=== PATIENT | female | born 1950 | race Caucasian/White ===

== ENCOUNTER 2019-04-22 13:28 | Emergency (ER) | payer OTHER ==
[~2019-04-22] VITALS: Ht 154.9 cm; Wt 84.4 kg
[2019-04-22 13:56] VITALS: BP_SYST 143
--- NOTE | 2019-04-22 14:01 | NUR ---
Patient triaged and placed in waiting room. VSS and patient appears in no acute distress at this time. Accompanied by family, awaiting available bed, and MD notified of need for MSE.
--- NOTE | 2019-04-22 15:20 | NUR ---
BROUGHT BACK TO [facility] AND REPORT GIVEN TO ESTHER
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
--- NOTE | 2019-04-22 15:35 | NUR ---
ER Dr. Perales at bedside examining patient.
[2019-04-22 16:08] VITALS: BP_SYST 139
--- NOTE | 2019-04-22 16:08 | NUR ---
Patient given written and verbal discharge instructions and verbalizes understanding. ER MD MARQUEZ discussed with patient the results and treatment provided. Patient in stable condition. ID arm band removed. Rx of Motrin given. Patient educated on pain management and to follow up with PMD. Pain Scale 0. Opportunity for questions provided and answered. Medication side effect fact sheet provided.
== END 2019-04-22 16:08 | disposition home or self-care (01) ==
LOC: SED 13:28
DX: S20.229A Contusion of unspecified back wall of thorax, initial encounter (principal); I10 Essential (primary) hypertension; V49.40XA Driver injured in collision with unspecified motor vehicles in traffic accident, initial encounter; Y93.89 Activity, other specified; Y92.411 Interstate highway as the place of occurrence of the external cause; Y99.8 Other external cause status
CPT/HCPCS: 99282

== ENCOUNTER 2020-11-11 17:17 | Inpatient (IN) | payer OTHER, SELFPAY ==
[~2020-11-11] VITALS: Ht 157.5 cm; Wt 58.1 kg
[2020-11-11 17:18] VITALS: BP_SYST 188
[2020-11-11] MEDS ORDERED: ASPIRIN 325 MG TABLET PO ONE (17:45)
[2020-11-11] MEDS ORDERED: HYDR25TA4 PO (17:48)
[2020-11-11] MEDS ORDERED: LEVO112C4 (17:48)
[2020-11-11] MEDS ORDERED: ESCI10TA PO (17:48)
[2020-11-11] MEDS ORDERED: ATEN50TA PO (17:48)
[2020-11-11 17:50] LABS: BASOPHILS # (AUTO) 0.1 K/uL (0.0-0.2); BASOPHILS % (AUTO) 0.8 % (0.0-2.0); EOSINOPHILS % (AUTO) 0.6 % (0.0-4.0); HEMATOCRIT 38.4 % (36-48); HEMOGLOBIN 13.2 g/dL (12.0-16.0); LYMPHOCYTES # (AUTO) 2.2 K/uL (1.0-5.5); LYMPHOCYTES % (AUTO) 26.8 % (20.5-51.5); MEAN CORPUSCULAR HEMOGLOBIN 32 pg (27-31); MEAN CORPUSCULAR HGB CONC 34 % (32-36); MEAN CORPUSCULAR VOLUME 92 fL (79.0-98.0); MONOCYTES # (AUTO) 0.7 K/uL (0.0-1.0); MONOCYTES % (AUTO) 9.2 % (1.7-9.3); NEUTROPHILS # (AUTO) 5.1 K/uL (1.8-7.7); NEUTROPHILS % (AUTO) 62.6 % (40.0-70.0); PLATELET COUNT (AUTO) 209 K/uL (130-430); RED BLOOD CELL COUNT(AUTO) 4.17 MIL/uL (4.2-6.2); RED CELL DISTRIBUTION WIDTH 16.1 % (9.0-15.0); WHITE BLOOD COUNT (AUTO) 8.1 K/uL (4.8-10.8)
[2020-11-11 17:58] LABS: ANION GAP 11 (5-15); CREATININE 0.77 mg/dL (0.55-1.30); GLUCOSE 117 mg/dL (70-99); POTASSIUM 3.8 mmol/L (3.5-5.1); UREA NITROGEN, BLOOD 13 mg/dL (8-21)
[2020-11-11] MEDS ORDERED: ASPIRIN 325 MG TABLET ONE (18:01)
[2020-11-11 18:03] LABS: ALANINE AMINOTRANSFERASE 30 U/L (12-78); ALBUMIN 3.6 g/dL (3.4-4.8); ASPARTATE AMINOTRANSFERASE 25 U/L (10-37); TOTAL BILIRUBIN 0.8 mg/dL (0.0-1.0)
[2020-11-11 18:06] LABS: SODIUM SERUM 119 mmol/L (136-145)
[2020-11-11 18:07] LABS: CHLORIDE 84 mmol/L (98-107)
[2020-11-11 18:14] LABS: BILIRUBIN,URINE NEGATIVE (NEGATIVE); BLOOD, URINE TRACE (NEGATIVE); CLARITY/URINE CLEAR (CLEAR); COLOR,URINE YELLOW (YELLOW); GLUCOSE,URINE NEGATIVE (NEGATIVE); KETONES,URINE NEGATIVE (NEGATIVE); LEUKOCYTE ESTERASE ,URINE TRACE (NEGATIVE); NITRITE, URINE NEGATIVE (NEGATIVE); PH,URINE 7.5 (5.0-8.0); PROTEIN URINE NEGATIVE (NEGATIVE); UROBILINOGEN,URINE 0.2 (0.2-1.0)
[2020-11-11 18:15] LABS: BACTERIA,URINE FEW /HPF (None Seen); MUCUS,URINE None Seen /LPF (None Seen); RBC,URINE 0-3 /HPF (0-3)
[2020-11-11] MEDS ORDERED: SODIUM CHLORIDE 3% *HI-ALERT* 500 ML IV ONE ×2 (18:15→18:25)
[2020-11-11] MEDS ORDERED: ENALAPRILAT DIHYDRATE 1.25 MG/ML VIAL IVP ONE (18:30)
[2020-11-11] MEDS ORDERED: hydrALAZINE HCL 20 MG/ML VIAL IVP ONE (18:30)
[2020-11-11] MEDS ORDERED: NACL 0.9% 1,000 ML IV SCH (19:30)
[2020-11-11] MEDS ORDERED: ALBUTEROL SULFATE 0.083% 2.5 MG/3 ML VIAL.NEB INH PRN (19:30)
[2020-11-11 20:02] VITALS: BP_SYST 145
[2020-11-11] MEDS: ACETAMINOPHEN 325 MG TABLET PO PRN (20:08)
[2020-11-11] MEDS ORDERED: HYDROcodone/ACETAMIN 5-325 MG TAB (NORCO/ VICODIN) PO ONE (21:30)
[2020-11-12] VITALS: BP_SYST 148
[2020-11-12] MEDS: ACETAMINOPHEN 325 MG TABLET PO PRN ×2 (01:28→04:32)
[2020-11-12 06:05] VITALS: BP_SYST 145
[2020-11-12] MEDS: LEVOTHYROXINE SODIUM 0.112 MG TABLET PO SCH (06:30)
[2020-11-12 07:09] LABS: CHOLESTEROL 198 mg/dL (<200); HDL CHOLESTEROL 82 mg/dL (>55); LDL CHOLESTEROL 104 mg/dL (<100); TRIGLYCERIDES 58 mg/dL (30-150)
[2020-11-12 08:00] VITALS: BP_SYST 149
[2020-11-12] MEDS: ASPIRIN 325 MG TABLET PO SCH (10:14)
[2020-11-12 11:44] LABS: ANION GAP 14 (5-15); CALCIUM 8.8 mg/dL (8.4-11.0); CREATININE 0.73 mg/dL (0.55-1.30); GLUCOSE 105 mg/dL (70-99); UREA NITROGEN, BLOOD 11 mg/dL (8-21)
[2020-11-12 11:50] LABS: ALANINE AMINOTRANSFERASE 27 U/L (12-78); ALBUMIN 3.4 g/dL (3.4-4.8); ASPARTATE AMINOTRANSFERASE 28 U/L (10-37); TOTAL BILIRUBIN 0.9 mg/dL (0.0-1.0)
[2020-11-12 11:59] LABS: CHLORIDE 79 mmol/L (98-107); POTASSIUM 2.9 mmol/L (3.5-5.1); SODIUM SERUM 113 mmol/L (136-145)
[2020-11-12 12:00] VITALS: BP_SYST 150
[2020-11-12] MEDS ORDERED: POTASSIUM CHLORIDE 40 MEQ in NS 250 ML IV ONE (12:15)
[2020-11-12 12:49] LABS: ANION GAP 12 (5-15); CALCIUM 8.5 mg/dL (8.4-11.0); CREATININE 0.72 mg/dL (0.55-1.30); GLUCOSE 115 mg/dL (70-99); UREA NITROGEN, BLOOD 12 mg/dL (8-21)
[2020-11-12 12:52] LABS: SODIUM SERUM 113 mmol/L (136-145)
[2020-11-12 12:53] LABS: CHLORIDE 79 mmol/L (98-107)
[2020-11-12] MEDS: traMADol HCL HCL 50 MG TABLET (ULTRAM) PO PRN (12:58)
[2020-11-12] MEDS ORDERED: NACL 0.9% 1,000 ML IV SCH (15:00)
[2020-11-12 15:32] VITALS: BP_SYST 146
[2020-11-12] MEDS ORDERED: SODIUM CHLORIDE 3% *HI-ALERT* 200 ML IV ONE (16:30)
[2020-11-12 18:38] LABS: ANION GAP 10 (5-15); CALCIUM 8.7 mg/dL (8.4-11.0); CREATININE 0.83 mg/dL (0.55-1.30); GLUCOSE 145 mg/dL (70-99); POTASSIUM 4.3 mmol/L (3.5-5.1); UREA NITROGEN, BLOOD 13 mg/dL (8-21)
[2020-11-12 18:41] LABS: SODIUM SERUM 113 mmol/L (136-145)
[2020-11-12 18:44] LABS: CHLORIDE 79 mmol/L (98-107)
[2020-11-12 20:00] VITALS: BP_SYST 143
[2020-11-13] VITALS: BP_SYST 145
[2020-11-13 03:26] LABS: ANION GAP 10 (5-15); CALCIUM 8.1 mg/dL (8.4-11.0); CREATININE 0.65 mg/dL (0.55-1.30); GLUCOSE 105 mg/dL (70-99); POTASSIUM 3.8 mmol/L (3.5-5.1); UREA NITROGEN, BLOOD 14 mg/dL (8-21)
[2020-11-13 03:31] LABS: CHLORIDE 85 mmol/L (98-107); SODIUM SERUM 116 mmol/L (136-145)
[2020-11-13] MEDS: traMADol HCL HCL 50 MG TABLET (ULTRAM) PO PRN ×3 (04:23→20:12)
[2020-11-13 05:00] VITALS: BP_SYST 130
[2020-11-13] MEDS ORDERED: SODIUM CHLORIDE 3% *HI-ALERT* 200 ML IV SCH (06:45)
[2020-11-13 08:00] VITALS: BP_SYST 130
[2020-11-13 08:07] LABS: ANION GAP 9 (5-15); CALCIUM 8.2 mg/dL (8.4-11.0); CHLORIDE 88 mmol/L (98-107); GLUCOSE 104 mg/dL (70-99); POTASSIUM 3.9 mmol/L (3.5-5.1); SODIUM SERUM 120 mmol/L (136-145); THYROID STIMULATING HORMONE 5.46 uIu/mL (0.36-3.74); UREA NITROGEN, BLOOD 14 mg/dL (8-21)
[2020-11-13] MEDS: ASPIRIN 325 MG TABLET PO SCH (08:25)
[2020-11-13 11:23] VITALS: BP_SYST 118
[2020-11-13 12:22] LABS: ANION GAP 10 (5-15); CALCIUM 8.1 mg/dL (8.4-11.0); CHLORIDE 87 mmol/L (98-107); GLUCOSE 93 mg/dL (70-99); POTASSIUM 3.9 mmol/L (3.5-5.1); SODIUM SERUM 120 mmol/L (136-145); UREA NITROGEN, BLOOD 17 mg/dL (8-21)
[2020-11-13] MEDS: ACETAMINOPHEN 325 MG TABLET PO PRN (13:54)
[2020-11-13 15:24] VITALS: BP_SYST 138
[2020-11-13 18:20] LABS: ANION GAP 10 (5-15); CALCIUM 8.3 mg/dL (8.4-11.0); CHLORIDE 91 mmol/L (98-107); CREATININE 0.85 mg/dL (0.55-1.30); GLUCOSE 101 mg/dL (70-99); POTASSIUM 3.8 mmol/L (3.5-5.1); SODIUM SERUM 123 mmol/L (136-145); UREA NITROGEN, BLOOD 17 mg/dL (8-21)
[2020-11-13 20:00] VITALS: BP_SYST 129
[2020-11-14] VITALS: BP_SYST 136
[2020-11-14] MEDS: ACETAMINOPHEN 325 MG TABLET PO PRN ×3 (00:26→17:48)
[2020-11-14] MEDS: traMADol HCL HCL 50 MG TABLET (ULTRAM) PO PRN ×3 (04:18→21:28)
[2020-11-14 06:06] LABS: FOLATE (FOLIC ACID) >20.0 ng/mL (>3.0)
[2020-11-14] MEDS: LEVOTHYROXINE SODIUM 0.112 MG TABLET PO SCH (06:48)
[2020-11-14 08:17] VITALS: BP_SYST 132
[2020-11-14] MEDS: ASPIRIN 325 MG TABLET PO SCH (08:26)
[2020-11-14 12:14] VITALS: BP_SYST 131
[2020-11-14 16:10] VITALS: BP_SYST 128
[2020-11-14 20:00] VITALS: BP_SYST 113
[2020-11-14] MEDS ORDERED: POLYETHYLENE GLYCOL 3350, 17 GM/ POWD.PACK PO PRN (21:00)
[2020-11-15 02:11] VITALS: BP_SYST 120
[2020-11-15] MEDS: LEVOTHYROXINE SODIUM 0.112 MG TABLET PO SCH (06:08)
[2020-11-15] MEDS: ACETAMINOPHEN 325 MG TABLET PO PRN (06:09)
[2020-11-15 06:31] LABS: BASOPHILS % (AUTO) 0.5 % (0.0-2.0); EOSINOPHILS % (AUTO) 0.4 % (0.0-4.0); HEMATOCRIT 34.4 % (36-48); HEMOGLOBIN 11.7 g/dL (12.0-16.0); LYMPHOCYTES % (AUTO) 10.4 % (20.5-51.5); MEAN CORPUSCULAR HEMOGLOBIN 32 pg (27-31); MEAN CORPUSCULAR HGB CONC 34 % (32-36); MEAN CORPUSCULAR VOLUME 92 fL (79.0-98.0); MONOCYTES # (AUTO) 1.1 K/uL (0.0-1.0); MONOCYTES % (AUTO) 11.8 % (1.7-9.3); NEUTROPHILS # (AUTO) 7.5 K/uL (1.8-7.7); NEUTROPHILS % (AUTO) 76.9 % (40.0-70.0); PLATELET COUNT (AUTO) 191 K/uL (130-430); RED BLOOD CELL COUNT(AUTO) 3.72 MIL/uL (4.2-6.2); RED CELL DISTRIBUTION WIDTH 16.1 % (9.0-15.0); WHITE BLOOD COUNT (AUTO) 9.7 K/uL (4.8-10.8)
[2020-11-15 06:49] LABS: ALANINE AMINOTRANSFERASE 29 U/L (12-78); ALBUMIN 2.5 g/dL (3.4-4.8); ANION GAP 7 (5-15); ASPARTATE AMINOTRANSFERASE 26 U/L (10-37); CALCIUM 8.2 mg/dL (8.4-11.0); CHLORIDE 96 mmol/L (98-107); CREATININE 0.75 mg/dL (0.55-1.30); GLUCOSE 100 mg/dL (70-99); POTASSIUM 3.6 mmol/L (3.5-5.1); SODIUM SERUM 128 mmol/L (136-145); TOTAL BILIRUBIN 0.6 mg/dL (0.0-1.0); UREA NITROGEN, BLOOD 19 mg/dL (8-21)
[2020-11-15 07:50] VITALS: BP_SYST 129
[2020-11-15] MEDS: ASPIRIN 325 MG TABLET PO SCH (08:01)
[2020-11-15 08:02] VITALS: BP_SYST 129
[2020-11-15 11:24] VITALS: BP_SYST 129
[2020-11-15 12:07] VITALS: BP_SYST 128
== END 2020-11-15 13:55 | disposition home or self-care (01) | DRG 392 ==
LOC: SED 17:17 → STU 18:31
PROVIDERS: ADMIT Internal Medicine Hospice and Palliative Medicine; ATTEND Internal Medicine Hospice and Palliative Medicine
DX: K21.9 Gastro-esophageal reflux disease without esophagitis (principal); E87.1 Hypo-osmolality and hyponatremia; R26.89 Other abnormalities of gait and mobility; I10 Essential (primary) hypertension; E78.5 Hyperlipidemia, unspecified; R20.0 Anesthesia of skin; E03.9 Hypothyroidism, unspecified; G47.30 Sleep apnea, unspecified; F32.9 Major depressive disorder, single episode, unspecified; Z20.822 Contact with and (suspected) exposure to COVID-19; Z88.1 Allergy status to other antibiotic agents; Z79.890 Hormone replacement therapy; Z79.899 Other long term (current) drug therapy
CPT/HCPCS: 36415; 70450-TC; 70496; 70498; 70551; 71045; 72148; 76376; 76700-TC; 80048; 80053; 80061; 81000; 82533; 82607; 82746; 83735; 84443; 85025; 92523; 92610-GN; 93005; 93306; 96374; 96375; 97116-GP; 97530-GP; 99291; G0378; J0360; J3480; J3490; J7050

== ENCOUNTER 2021-11-13 16:17 | Inpatient (IN) | payer OTHER ==
[~2021-11-13] VITALS: Ht 157.5 cm; Wt 60.3 kg
[~2021-11-13 16:17] MED LIST: ATEN50TA PO; ESCI10TA PO; LEVO112C4
[2021-11-13 16:22] VITALS: BP_SYST 169
--- NOTE | 2021-11-13 16:30 | NUR ---
Pt triaged and placed in waiting area pending bed availability.
--- NOTE | 2021-11-13 17:20 | NUR ---
ER Dr. Rosado to waiting room area to examine patient.
[2021-11-13 17:57] LABS: BASOPHILS # (AUTO) 0.3 K/uL (0.0-0.2); BASOPHILS % (AUTO) 4.2 % (0.0-2.0); EOSINOPHILS # (AUTO) 0.1 K/uL (0.0-0.4); EOSINOPHILS % (AUTO) 1.9 % (0.0-4.0); HEMATOCRIT 32.8 % (36-48); LYMPHOCYTES # (AUTO) 1.8 K/uL (1.0-5.5); LYMPHOCYTES % (AUTO) 25.5 % (20.5-51.5); MEAN CORPUSCULAR HEMOGLOBIN 30 pg (27-31); MEAN CORPUSCULAR HGB CONC 34 % (32-36); MEAN CORPUSCULAR VOLUME 90 fL (79.0-98.0); MONOCYTES # (AUTO) 0.5 K/uL (0.0-1.0); MONOCYTES % (AUTO) 7.8 % (1.7-9.3); NEUTROPHILS # (AUTO) 4.2 K/uL (1.8-7.7); NEUTROPHILS % (AUTO) 60.6 % (40.0-70.0); PLATELET COUNT (AUTO) 240 K/uL (130-430); RED BLOOD CELL COUNT(AUTO) 3.65 MIL/uL (4.2-6.2); RED CELL DISTRIBUTION WIDTH 16.1 % (9.0-15.0); WHITE BLOOD COUNT (AUTO) 6.9 K/uL (4.8-10.8)
[2021-11-13 17:58] LABS: ANION GAP 5 (5-15); CALCIUM 7.8 mg/dL (8.4-11.0); CHLORIDE 93 mmol/L (98-107); GLUCOSE 93 mg/dL (70-99); POTASSIUM 4.3 mmol/L (3.5-5.1); SODIUM SERUM 126 mmol/L (136-145); UREA NITROGEN, BLOOD 20 mg/dL (8-21)
[2021-11-13 18:04] LABS: ALANINE AMINOTRANSFERASE 74 U/L (12-78); ALBUMIN 2.9 g/dL (3.4-4.8); ASPARTATE AMINOTRANSFERASE 55 U/L (10-37); TOTAL BILIRUBIN 0.4 mg/dL (0.0-1.0)
[2021-11-13 19:41] LABS: BILIRUBIN,URINE NEGATIVE (NEGATIVE); BLOOD, URINE 1+ (NEGATIVE); CLARITY/URINE CLEAR (CLEAR); COLOR,URINE YELLOW (YELLOW); GLUCOSE,URINE NEGATIVE (NEGATIVE); KETONES,URINE TRACE (NEGATIVE); LEUKOCYTE ESTERASE ,URINE 1+ (NEGATIVE); NITRITE, URINE NEGATIVE (NEGATIVE); PROTEIN URINE NEGATIVE (NEGATIVE); UROBILINOGEN,URINE 0.2 (0.2-1.0)
--- NOTE | 2021-11-13 20:08 | NUR ---
Patient to ER bed 04 to gown for evaluation. Side rails up. Report given to MICA GOLDSMITH
--- NOTE | 2021-11-13 20:13 | NUR ---
pt moved to bed 4 from triage. complaining of LÓPEZ and lower back pain. aox4. gcs15. skin warm dry intact. daughter at bedside. nad noted at this time. resp equal unlabored. denies cp at this time. hx hyponatremia, hypothyriodism, htn
[2021-11-13 20:20] LABS: RBC,URINE 0-3 /HPF (0-3)
[2021-11-13 20:21] LABS: BACTERIA,URINE FEW /HPF (None Seen); WBC,URINE 0-3 /HPF (0-3)
[2021-11-13] MEDS ORDERED: NACL 0.9% 1,000 ML IV ONE (21:00)
--- NOTE | 2021-11-13 21:49 | NUR ---
Admit bed requested Patient will be admitted to care of . Admitted to unit. Diagnosis Inpatient (Yes or No) Observation (Yes or No) Orientation concerns or request close to nursing station (Yes or No) Covid Status On vent or bipap Isolation requirements Needs a sitter From Home (Yes or if No enter name of facility) Requires Dialysis (Yes or No) Med Rec Completed (Yes of No)
[2021-11-13] MEDS ORDERED: NALOXONE HCL 0.4 MG/ML AMP (NARCAN) IVP PRN ×2 (22:30)
[2021-11-13] MEDS ORDERED: ACETAMINOPHEN 325 MG TABLET PO PRN (22:30)
[2021-11-13] MEDS ORDERED: ONDANSETRON HCL 4 MG/2 ML VIAL IVP PRN (22:30)
[2021-11-13] MEDS ORDERED: HYDROcodone/ACETAMIN 10-325 MG TAB PO PRN (22:30)
[2021-11-13] MEDS ORDERED: GABA-529 PO (22:37)
[2021-11-14] MEDS: D5NS 1,000 ML IV SCH ×3 (00:04→21:41)
--- NOTE | 2021-11-14 02:17 | NUR ---
REPORT TO SAMIA NINO PT TO BE MOVED TO [facility]A PT AWARE OF PLAN OF CARE NAD AT THIS TIME
--- NOTE | 2021-11-14 02:30 | NUR ---
ADMISSION NOTE Received patient from ER via pool, received report from MICA Ríos. Patient admitted with diagnosis of HYPONATREMIA. Patient oriented to hospital routine, call light, toileting and safety-patient verbalized understanding.
--- NOTE | 2021-11-14 02:40 | NUR ---
Initial RN notes Pt AAOx4, no s/s distress noted. Pt states lower back pain and back neck pain is ok at this time. IVF infusing at ordered rate on RAC 20G good blood return. Pt ambulated to bathroom, steady gait. Call light within reach. Bed low, locked, siderails up x2. To monitor.
[2021-11-14 02:46] VITALS: BP_SYST 154
--- NOTE | 2021-11-14 03:50 | NUR ---
MORNING CONSULT FOR [facility] I SPOKE WITH JAMAAL FULLER REASON FOR CONSULT: HYPONATREMIA REQUESTING CONSULT: DR. ARUNA Brady LICENSED LAND SURVEYOR PHONE NUMBER: [phone]
--- NOTE | 2021-11-14 03:53 | NUR ---
MORNING CONSULT FOR DR. GAXIOLA I SPOKE WITH JAMAAL FULLER REASON FOR CONSULT: UTI REQUESTING CONSULT: DR. ARUNA Renee MOTOR VEHICLE REPRESENTATIVE PHONE NUMBER: [phone]
--- NOTE | 2021-11-14 06:28 | NUR ---
CONSULTATION PAGED REASON FOR CONSULTATION:HYPONATREMIA WAS CONSULT CALLED?Y -PERSON WHO WAS NOTIFIED:CEDRIC CONSULTING PHYSICIAN:HERBIE JIANG CHASSIS WIRER SPECIALTY:RENAL CHASSIS WIRER PHONE NUMBER:[phone] REQUESTING PHYSICIAN:JORDON KAY
[2021-11-14] MEDS: LEVOTHYROXINE SODIUM 0.112 MG TABLET PO SCH (06:39)
--- NOTE | 2021-11-14 07:01 | NUR ---
Closing notes Pt AAOx4, no s/s distress noted. No c/o pain at this time. IVF infusing at ordered rate on RAC 20G good blood return. Pt assisted to bathroom, steady gait. Call light within reach. Bed low, locked, siderails up x2. To endorse to AM nurse.
[2021-11-14 07:19] LABS: BASOPHILS % (AUTO) 0.6 % (0.0-2.0); EOSINOPHILS # (AUTO) 0.1 K/uL (0.0-0.4); EOSINOPHILS % (AUTO) 2.1 % (0.0-4.0); HEMATOCRIT 33.5 % (36-48); HEMOGLOBIN 11.4 g/dL (12.0-16.0); LYMPHOCYTES # (AUTO) 1.9 K/uL (1.0-5.5); LYMPHOCYTES % (AUTO) 32.8 % (20.5-51.5); MEAN CORPUSCULAR HEMOGLOBIN 31 pg (27-31); MEAN CORPUSCULAR HGB CONC 34 % (32-36); MEAN CORPUSCULAR VOLUME 90 fL (79.0-98.0); MONOCYTES # (AUTO) 0.7 K/uL (0.0-1.0); MONOCYTES % (AUTO) 12.7 % (1.7-9.3); NEUTROPHILS % (AUTO) 51.8 % (40.0-70.0); PLATELET COUNT (AUTO) 238 K/uL (130-430); RED BLOOD CELL COUNT(AUTO) 3.73 MIL/uL (4.2-6.2); RED CELL DISTRIBUTION WIDTH 16.3 % (9.0-15.0); WHITE BLOOD COUNT (AUTO) 5.8 K/uL (4.8-10.8)
[2021-11-14 07:59] LABS: ALANINE AMINOTRANSFERASE 72 U/L (12-78); ALBUMIN 2.7 g/dL (3.4-4.8); ANION GAP 5 (5-15); ASPARTATE AMINOTRANSFERASE 49 U/L (10-37); CALCIUM 7.7 mg/dL (8.4-11.0); CHLORIDE 103 mmol/L (98-107); CREATININE 0.78 mg/dL (0.55-1.30); GLUCOSE 109 mg/dL (70-99); PHOSPHORUS 3.4 mg/dL (2.7-4.5); POTASSIUM 3.5 mmol/L (3.5-5.1); SODIUM SERUM 137 mmol/L (136-145); TOTAL BILIRUBIN 0.4 mg/dL (0.0-1.0); UREA NITROGEN, BLOOD 15 mg/dL (8-21)
--- NOTE | 2021-11-14 08:00 | NUR ---
received patient from pm nurse, sleeping with no outward signs of pain or discomfort, will assume all care of patient at this time
--- NOTE | 2021-11-14 08:33 | NUR ---
CONSULTATION PAGED REASON FOR CONSULTATION:BACK PAIN WAS CONSULT CALLED?Y -PERSON WHO WAS NOTIFIED:TEXT MESSAGED HEBERT YOON CONSULTING PHYSICIAN:HEBERT YOON PROGRAM DIRECTOR/TRAFFIC DIRECTOR SPECIALTY:NEURO PROGRAM DIRECTOR/TRAFFIC DIRECTOR PHONE NUMBER:[phone] REQUESTING PHYSICIAN: GLORIA LASSITER
[2021-11-14] MEDS: CITALOPRAM HYDROBROMIDE 20 MG TABLET PO SCH (08:52)
[2021-11-14] MEDS: ATENOLOL 50 MG TABLET (TENORMIN) PO SCH (08:52)
[2021-11-14] MEDS: amLODIPine BESYLATE 5 MG TABLET PO SCH ×2 (08:53→21:38)
[2021-11-14] MEDS ORDERED: ESCITALOPRAM OXALATE 10 MG TABLET PO SCH (09:00)
[2021-11-14] MEDS ORDERED: LORazepam 2 MG/ML VIAL IVP ONE (09:00)
[2021-11-14 11:30] VITALS: BP_SYST 136
[2021-11-14 15:44] VITALS: BP_SYST 118
[2021-11-14 19:50] VITALS: BP_SYST 116
[2021-11-14] MEDS: HYDROcodone/ACETAMIN 5-325 MG TAB (NORCO/ VICODIN) PO PRN (21:56)
[2021-11-15 01:09] VITALS: BP_SYST 138
[2021-11-15] MEDS: D5NS 1,000 ML IV SCH ×2 (04:30→09:42)
--- NOTE | 2021-11-15 05:40 | NUR ---
IV RE-INSERTION: IV on Right AC not patent. DC'd IV catheter tip intact. Restarted on L. wrist 22G . Successful after x1 attempt. Good blood return. Resumed current IVF. Pt tolerated well.
[2021-11-15] MEDS: LEVOTHYROXINE SODIUM 0.112 MG TABLET PO SCH (06:05)
[2021-11-15 07:47] LABS: ANION GAP 6 (5-15); CALCIUM 7.5 mg/dL (8.4-11.0); CHLORIDE 103 mmol/L (98-107); CREATININE 0.77 mg/dL (0.55-1.30); GLUCOSE 98 mg/dL (70-99); POTASSIUM 3.8 mmol/L (3.5-5.1); SODIUM SERUM 135 mmol/L (136-145); UREA NITROGEN, BLOOD 13 mg/dL (8-21)
[2021-11-15 08:01] VITALS: BP_SYST 142
[2021-11-15] MEDS: CITALOPRAM HYDROBROMIDE 20 MG TABLET PO SCH (08:59)
[2021-11-15] MEDS: amLODIPine BESYLATE 5 MG TABLET PO SCH ×2 (09:00→21:46)
[2021-11-15] MEDS: ATENOLOL 50 MG TABLET (TENORMIN) PO SCH (09:00)
[2021-11-15] MEDS ORDERED: LORazepam 2 MG/ML VIAL IVP ONE (09:45)
--- NOTE | 2021-11-15 10:06 | NUR ---
[facility] NOTE: Called Dr. Pat back at identified within the medical roster to verify physician authenticity.
[2021-11-15 17:24] VITALS: BP_SYST 136
--- NOTE | 2021-11-15 17:53 | NUR ---
dr puckett here and talking to family and patient
--- NOTE | 2021-11-15 18:32 | NUR ---
PHYSICAL THERAPY CO-SIGN The Physical Therapy Progress Notes documented by English Language Learner Tutor have been reviewed. Reviewed/Co-Signed by: Ranjana Sweeney PT Documentation Done by:MARTINA LEONARD PHARMACIST'S AIDE Addendum: 11/15/21 at 1832 by Ranjana Sweeney PT Amended: Links added.
--- NOTE | 2021-11-15 19:42 | NUR ---
ENDORSED TO NIGHT NURSE YONATHAN PT ON STABLE CONDITION, NO C/O PAIN, NO SOB.
[2021-11-15 23:35] VITALS: BP_SYST 118
[2021-11-16] MEDS: D5NS 1,000 ML IV SCH ×2 (01:16→11:10)
[2021-11-16 01:20] VITALS: BP_SYST 120
[2021-11-16] MEDS: HYDROcodone/ACETAMIN 5-325 MG TAB (NORCO/ VICODIN) PO PRN (02:38)
[2021-11-16 05:17] VITALS: BP_SYST 125
[2021-11-16] MEDS: LEVOTHYROXINE SODIUM 0.112 MG TABLET PO SCH (06:11)
[2021-11-16 09:02] VITALS: BP_SYST 137
[2021-11-16] MEDS: amLODIPine BESYLATE 5 MG TABLET PO SCH (10:04)
[2021-11-16] MEDS: CITALOPRAM HYDROBROMIDE 20 MG TABLET PO SCH (10:04)
[2021-11-16] MEDS: ATENOLOL 50 MG TABLET (TENORMIN) PO SCH (10:05)
[2021-11-16 12:25] VITALS: BP_SYST 134
[2021-11-16 14:17] VITALS: BP_SYST 125
== END 2021-11-16 15:50 | disposition home or self-care (01) | DRG 690 ==
LOC: SED 16:17 → SMU 21:45
PROVIDERS: ADMIT Preventive Medicine Preventive Medicine/Occupational Environmental Medicine; ATTEND Preventive Medicine Preventive Medicine/Occupational Environmental Medicine
DX: N39.0 Urinary tract infection, site not specified (principal); E87.1 Hypo-osmolality and hyponatremia; M54.9 Dorsalgia, unspecified; I10 Essential (primary) hypertension; E03.9 Hypothyroidism, unspecified; M47.814 Spondylosis without myelopathy or radiculopathy, thoracic region; Z20.822 Contact with and (suspected) exposure to COVID-19; M47.816 Spondylosis without myelopathy or radiculopathy, lumbar region; M81.0 Age-related osteoporosis without current pathological fracture; Z79.899 Other long term (current) drug therapy
CPT/HCPCS: 36415; 72128; 72131; 72141; 72149; 76376; 80048; 80053; 81000; 83735; 84100; 84443; 85025; 87086; 93005; 96360; 97110-GP; 97116-GP; 99285; J2060; J7030